=== PATIENT | female | born 1970 | race Caucasian/White ===

== ENCOUNTER → 2016-11-23 | Outpatient (CLI) | payer OTHER ==
--- NOTE | 2016-11-26 13:49 | MM ---
Reason for exam: screening (asymptomatic). Last mammogram was performed 4 years and 9 months ago. History: Family history of breast cancer in maternal cousin at age 40. Benign US LT VAD breast biopsy of the left breast, March 11, 2012. Physical Findings: A clinical breast exam by your physician is recommended on an annual basis and results should be correlated with mammographic findings. MG 3D Screening Mammo W/Cad Bilateral CC and MLO view(s) were taken. Prior study comparison: March 03, 2012, CAD bilateral diagnostic mammogram. The breast tissue is heterogeneously dense. This may lower the sensitivity of mammography. No significant changes when compared with prior studies. ASSESSMENT: Benign, BI-RAD 2 RECOMMENDATION: Routine screening mammogram of both breasts in 1 year.
== END | disposition home or self-care (01) ==
LOC: RADMAMWWP 11:34
PROVIDERS: ATTEND Obstetrics & Gynecology
DX: Z12.31 Encounter for screening mammogram for malignant neoplasm of breast (principal)
CPT/HCPCS: 77063; G0202

== ENCOUNTER → 2018-03-26 | Outpatient (CLI) | payer OTHER ==
[2018-03-26 17:55] LABS: Basophils # (A) 0.1 k/uL (0-0.2); Basophils % (A) 1 %; Eosinophils # (A) 0.2 k/uL (0-0.7); Eosinophils % (A) 2 %; HCT 40.8 % (34.0-46.0); Lymphocytes % (A) 24 %; MCH 30.5 pg (25.0-35.0); MCHC 31.8 g/dL (31.0-37.0); MCV 95.8 fL (80.0-100.0); Mean Platelet Volume 7.5; Monocytes # (A) 0.3 k/uL (0-1.0); Monocytes % (A) 4 %; Neutrophils # (A) 5.5 k/uL (1.3-7.7); Neutrophils % (A) 67 %; Platelet Count 230 k/uL (150-450); RBC 4.27 m/uL (3.80-5.40); RDW 12.6 % (11.5-15.5); WBC 8.3 k/uL (3.8-10.6)
== END | disposition home or self-care (01) ==
LOC: LABWHC1 17:26
PROVIDERS: ATTEND Internal Medicine Gastroenterology
DX: R53.83 Other fatigue (principal)
CPT/HCPCS: 36415; 84443; 85025

== ENCOUNTER 2018-11-07 10:27 | Day surgery (SDC) | payer OTHER ==
[2018-11-05 15:18] VITALS: BMI 25.7
[~2018-11-07 10:27] MED LIST: DEXAMETHASONE SOD PHOSPHATE 10 MG/ML 1 ML VIAL IV ONE; LACTATED RINGERS 1,000 ML IV SCH; LIDOCAINE 1% 20 ML VIAL (10MG/ML) FOR IV START INTRADERMA PRN
[2018-11-07 10:53] VITALS: RESP 16; TEMP 98.3
[2018-11-07] MEDS ORDERED: PROPOFOL 10 MG/ML 20 ML VIAL IV ONE (11:31)
[2018-11-07] MEDS ORDERED: LIDOCAINE 1% INJ 10MG/ML (20 ML MDV) ONE (11:31)
--- NOTE | 2018-11-07 11:54 | P.PCN ---
Date of Procedure: 11/07/18 Procedure(s) Performed: Brief history: Patient is a pleasant 48-year-old white female scheduled for an elective upper endoscopy as well as colonoscopy as a part of evaluation of abdominal pain, abdominal bloating and change in bowel habits. She also has intermittent rectal bleeding. His been having the symptoms for the last several months duration. Procedure performed: Esophagogastroduodenoscopy with biopsy Colonoscopy with biopsy Preoperative diagnosis: Abdominal pain/abdominal bloating Change in bowel habits and intermittent rectal bleeding Anesthesia: MAC Procedure: After informed consent was obtained from the patient was brought into the endoscopy unit and IV sedation was administered by anesthesia under continuous monitoring. Initially upper endoscopy was done. The Olympus GF 160 video endoscope was inserted inserted into the mouth and esophagus intubated without any difficulty and was gradually advanced into the stomach and duodenum and carefully examined. The bulb and second part of the duodenum appeared normal. Biopsies were done from the duodenum to rule out celiac disease. The scope was then withdrawn into the stomach adequately insufflated with air and upon careful examination the antrum had patchy areas of erythema and biopsies were done from this area. The body, cardia and fundus appeared normal. The scope was then withdrawn into the esophagus. The GE junction was located at 40 cm to the incisors. It appeared regular with no erythema erosions or ulcerations. Rest of the esophagus appeared normal. Biopsies were done from the distal esophagus.Patient tolerated the procedure well. At this time the patient continued to remain sedation. Initial digital rectal examination was normal. Olympus CF 160 video colonoscope was then inserted into the rectum and gradually advanced to the cecum without any difficulty. Careful examination was performed as the scope was gradually being withdrawn. The prep was excellent. Terminal ileum was intubated and 20 cm visualized and appeared normal. Biopsies were done from the terminal ileum. The cecum, ascending colon, transverse colon, descending colon, sigmoid colon and rectum appeared normal. There was a 2-3 mm proximal rectal polyp that was removed by cold biopsy Retroflexion was performed in the rectum and no lesions were noted. Patient tolerated the procedure well. Impression: 1. Upper endoscopy revealed minimal antral gastritis but no evidence of esophagitis or peptic ulcer disease 2. Colonoscopy revealed 2 mm proximal rectal polyp status post removal by cold biopsy Recommendations: Findings of this examination were discussed with the patient as well as her family. She was advised to follow with the biopsy results. If the biopsy of the polyp reveals adenoma she can have a repeat colonoscopy in 5 years
[2018-11-07 12:33] VITALS: BP 117/66; PULSE 88
[2018-11-07] MEDS ORDERED: ACETAMINOPHEN TAB 325 MG TAB PO ONE (12:34)
== END 2018-11-07 12:56 | disposition home or self-care (01) ==
LOC: ORWHC2ENDO 10:27
PROVIDERS: ATTEND Internal Medicine Gastroenterology
DX: D12.8 Benign neoplasm of rectum (principal); K29.50 Unspecified chronic gastritis without bleeding; K62.5 Hemorrhage of anus and rectum; Z79.899 Other long term (current) drug therapy
CPT/HCPCS: 81025; 88305; 45380; 43239; J2001; J2704

== ENCOUNTER → 2019-11-09 | Outpatient (CLI) | payer BC ==
--- NOTE | 2019-11-10 11:57 | MM ---
Reason for exam: screening (asymptomatic). Last mammogram was performed 2 years and 11 months ago. History: Family history of breast cancer in maternal cousin at age 40. Reductions of both breasts, 2018. Benign US LT VAD breast biopsy of the left breast, March 11, 2012. Physical Findings: A clinical breast exam by your physician is recommended on an annual basis and results should be correlated with mammographic findings. MG 3D Screening Mammo W/Cad Bilateral CC and MLO view(s) were taken. Prior study comparison: November 23, 2016, bilateral MG 3d screening mammo w/cad. March 03, 2012, CAD bilateral diagnostic mammogram. The breast tissue is extremely dense which could obscure a lesion on mammography. Finding #1: There is a 3 mm equal density (isodense) mass in the lower quadrant, posterior, central position of the right breast. Finding #2: There are typically benign calcifications in both breasts. Previous mammotome biopsy in the left breast. ASSESSMENT: Incomplete: need additional imaging evaluation, BI-RAD 0 RECOMMENDATION: Special view mammogram of the right breast. If lesion persists on supplemental views, image directed ultrasound is recommended. [facility] will attempt to contact patient to return for supplemental views and ultrasound if indicated.
== END | disposition home or self-care (01) ==
LOC: RADMAMWWP 09:17
PROVIDERS: ATTEND Obstetrics & Gynecology
DX: Z12.31 Encounter for screening mammogram for malignant neoplasm of breast (principal); Z91.041 Radiographic dye allergy status
CPT/HCPCS: 77063; 77067

== ENCOUNTER → 2020-01-13 | Outpatient (CLI) | payer BC ==
--- NOTE | 2020-01-13 13:59 | CT ---
EXAMINATION TYPE: CT urogram wo/w con DATE OF EXAM: 01/13/2020 HISTORY: Kidney stones and chronic UTI. Other dorsalgia, Micro hematuria CT DLP: 1074.3mGycm Automated Exposure Control for Dose Reduction was Utilized. CONTRAST: CT scan of the abdomen and pelvis is performed without oral and without and with IV Contrast, patient injected with 100 mL of Isovue 300. Urogram protocol with 3-D reconstructed images created on a [employer] workstation and reviewed. COMPARISON: None. FINDINGS: KUB: Noncontrast images show no renal calculi bilaterally. Postcontrast images show symmetric cortica l medullary uptake and excretion from both kidneys without concerning solid or cystic renal mass or h ydronephrosis seen bilaterally. Visualized portion of both ureters show mild proximal to mid right ur eter without obstructing mass or calculus. Distal left ureter does not completely opacified. No suspi cious intraluminal mass or wall thickening in the moderately distended bladder is present. LUNG BASES: No significant abnormality is appreciated. LIVER/GB: Contracted gallbladder. PANCREAS: No significant abnormality is seen. SPLEEN: No significant abnormality is seen. ADRENALS: No significant abnormality is seen. BOWEL: Normal appearing appendix extending from cecum. No suspicious small or large bowel dilatation. UTERUS/ADNEXA: Anteverted uterus. LYMPH NODES: No greater than 1cm abdominal or pelvic lymph nodes are appreciated. OSSEOUS STRUCTURES: Hemangioma involving the L1 vertebra. OTHER: No significant additional abnormality is seen. IMPRESSION: Source of hematuria not identified. No acute findings are evident
== END | disposition home or self-care (01) ==
LOC: RADCTMAIN 12:17
PROVIDERS: ATTEND Urology
DX: M54.89 Other dorsalgia (principal); R31.29 Other microscopic hematuria
CPT/HCPCS: 74178; 74400; Q9967

== ENCOUNTER → 2021-04-18 | Outpatient (CLI) | payer BC ==
--- NOTE | 2021-04-18 11:27 | MM ---
Reason for exam: additional evaluation requested from prior study. Last mammogram was performed 1 year and 5 months ago. History: Family history of breast cancer in maternal cousin at age 40. Reductions of both breasts, 2018. Benign US LT VAD breast biopsy of the left breast, March 11, 2012. Physical Findings: A clinical breast exam by your physician is recommended on an annual basis and results should be correlated with mammographic findings. MG Diagnostic Mammo w CAD TYLER Bilateral CC and MLO view(s) were taken. Prior study comparison: November 09, 2019, bilateral MG 3d screening mammo w/cad. November 23, 2016, bilateral MG 3d screening mammo w/cad. The breast tissue is extremely dense which could obscure a lesion on mammography. Previous mammotome biopsy in the left breast. There is no discrete abnormality. These results were verbally communicated with the patient and result sheet given to the patient on 04/18/21. ASSESSMENT: Negative, BI-RAD 1 RECOMMENDATION: Routine screening mammogram of both breasts in 1 year.
== END | disposition home or self-care (01) ==
LOC: RADMAMWWP 09:05
PROVIDERS: ATTEND Obstetrics & Gynecology
DX: R92.8 Other abnormal and inconclusive findings on diagnostic imaging of breast (principal); Z80.3 Family history of malignant neoplasm of breast
CPT/HCPCS: 77066

== ENCOUNTER 2022-08-05 22:23 | Emergency (ER) | payer BC ==
[2022-08-05 22:36] VITALS: RESP 18; TEMP 97.9
--- NOTE | 2022-08-05 23:26 | ED ---
General Adult HPI - General Chief complaint: Recheck/Abnormal Lab/Rx Stated complaint: Wounds on Feeet Time Seen by Provider: 08/05/22 22:56 Source: patient, RN notes reviewed Mode of arrival: ambulatory Limitations: no limitations - History of Present Illness Initial comments: 51-year-old female with no significant past medical history presents the emergency Department chief complaint bilateral foot wounds. Patient reports having blisters on bilateral heels she noticed 10 days ago. She was recently started on Bactrim 2 days ago by urgent care. She reports no marked improvement of symptoms. She denies any known fevers, erythema, purulent discharge from the site. - Related Data Home Medications Medication Instructions Recorded Confirmed No Known Home Medications 11/05/18 11/07/18 Allergies Allergy/AdvReac Type Severity Reaction Status Date / Time No Known Allergies Allergy Verified 08/05/22 22:30 Review of Systems ROS Statement: Those systems with pertinent positive or pertinent negative responses have been documented in the HPI. ROS Other: All systems not noted in ROS Statement are negative. Past Medical History Past Medical History: No Reported History Additional Past Medical History / Comment(s): BLOATING, GAS, ABD. PAIN History of Any Multi-Drug Resistant Organisms: None Reported Past Surgical History: Hernia Repair Additional Past Surgical History / Comment(s): "tummy tuck" Past Anesthesia/Blood Transfusion Reactions: No Reported Reaction Past Psychological History: No Psychological Hx Reported Smoking Status: Never smoker Past Alcohol Use History: None Reported Past Drug Use History: None Reported - Past Family History Mother Family Medical History: No Reported History General Exam - General Exam Comments Initial Comments: General: Alert, in no acute distress patient is afebrile Head: atraumatic normocephalic. Eyes PERRL, EOMI intact, mucous membranes moist Respiratory: Lungs clear to auscultation bilaterally Cardiovascular: Heart rate regular rate and rhythm Abdominal: Soft without guarding or rebound Extremities: Normal inspection with full range of motion and normal capillary refill, small 1 cm superficial lacerations to bilateral heels. No marked surrounding erythema, edema, purulent discharge noted. 2+ DP/PT pulses bilaterally. Neuroogic: alert and oriented 3, CN II-XII intact, able to ambulate with steady gait Skin: warm dry and intact with normal color Limitations: no limitations Course Vital Signs 06/18/23 06/18/23 22:30 23:30 Temperature 97.9 F Pulse Rate 62 76 Respiratory 18 18 Rate Blood Pressure 139/120 105/69 O2 Sat by Pulse 96 97 Oximetry Medical Decision Making - Medical Decision Making Was pt. sent in by a medical professional or institution (KALYAN Oscar, EPIC ANALYST, urgent care, hospital, or half-way...) When possible be specific @ -[No] Did you speak to anyone other than the patient for history (EMS, parent, family, police, friend...)? What history was obtained from this source @ -[No] Did you review nursing and triage notes (agree or disagree)? Why? @ -[I reviewed and agree with nursing and triage notes] Were old charts reviewed (outside hosp., previous admission, EMS record, old EKG, old radiological studies, urgent care reports/EKG's, half-way records)? Report findings @ -[No old charts were reviewed] Differential Diagnosis (chest pain, altered mental status, abdominal pain women, abdominal pain men, vaginal bleeding, weakness, fever, dyspnea, syncope, headache, dizziness, GI bleed, back pain, seizure, CVA, palpatations, mental health, musculoskeletal)? @ -[not applicable] EKG interpreted by me (3pts min.). @ -[As above] X-rays interpreted by me (1pt min.). @ -[None done] CT interpreted by me (1pt min.). @ -[None done] U/S interpreted by me (1pt. min.). @ -[None done] What testing was considered but not performed or refused? (CT, X-rays, U/S, labs)? Why? @ -[None] What meds were considered but not given or refused? Why? @ -[None] Did you discuss the management of the patient with other professionals ( professionals i.e. KALYAN Oscar, EPIC ANALYST, lab, RT, psych nurse, director social, brim presser, teacher, life science technical officer, classification case manager)? Give summary @ -[No] Was smoking cessation discussed for >3mins.? @ -[No] Was critical care preformed (if so, how long)? @ -[No] Were there social determinants of health that impacted care today? How? (Homelessness, low income, unemployed, alcoholism, drug addiction, transportation, low edu. Level, literacy, decrease access to med. care, care home, rehab)? @ -[No] Was there de-escalation of care discussed even if they declined (Discuss DNR or withdrawal of care, Hospice)? DNR status @ -[No] What co-morbidities impacted this encounter? (DM, HTN, Smoking, COPD, CAD, Cancer, CVA, ARF, Chemo, Hep., AIDS, mental health diagnosis, sleep apnea, morbid obesity)? @ -[None] Was patient admitted / discharged? Hospital course, mention meds given and route, prescriptions, significant lab abnormalities, going to OR and other pertinent info. @ Discharged. 51-year-old female presents to the emergency department for wound recheck. Patient reports she has bilateral blisters on her heels. Physical exam reveals lesions on bilateral heels consistent with blisters without surrounding erythema or edema, purulent discharge. Patient is currently on antibiotics. Return precautions were discussed patient discharged in stable condition. Case discussed with Dr. Moe, who agrees with POC Undiagnosed new problem with uncertain prognosis? @ -[No] Drug Therapy requiring intensive monitoring for toxicity (Heparin, Nitro, Insulin, Cardizem)? @ -[No] Were any procedures done? @ -[No] Diagnosis/symptom? @ -wound re-check - Blister Acute, or Chronic, or Acute on Chronic? @ -Acute Uncomplicated (without systemic symptoms) or Complicated (systemic symptoms)? @ -uncomplicated Side effects of treatment? @ -[No] Exacerbation, Progression, or Severe Exacerbation? @ -[No] Poses a threat to life or bodily function? How? (Chest pain, [place], [place], pneumonia, PE, COPD, DKA, ARF, appy, cholecystitis, CVA, Diverticulitis, Homicidal, Suicidal, threat to staff... and all critical care pts) @ -low likelihood Disposition Clinical Impression: Encounter for wound re-check Disposition: HOME SELF-CARE Condition: Stable Additional Instructions: Please return to the nearest emergency department symptoms worsen or persist Is patient prescribed a controlled substance at d/c from ED?: No Referrals: Michel Pierre MD [Primary Care Provider] - 1-2 days Time of Disposition: 23:26
[2022-08-05 23:32] VITALS: BP 105/69; PULSE 76
== END 2022-08-05 23:38 | disposition home or self-care (01) ==
LOC: EC 22:23
DX: S90.822A Blister (nonthermal), left foot, initial encounter (principal); S90.821A Blister (nonthermal), right foot, initial encounter; X58.XXXA Exposure to other specified factors, initial encounter
CPT/HCPCS: 99282

== ENCOUNTER → 2023-11-05 | Outpatient (CLI) | payer BC ==
--- NOTE | 2023-11-06 13:06 | CT ---
EXAMINATION TYPE: High resolution CT chest wo con DATE OF EXAM: 11/05/2023 COMPARISON: Radiograph 09/30/2023 HISTORY: 53-year-old female J9 8.4 LUNG PAIN X 4 MONTHS TECHNIQUE: Thin cut high-resolution CT scanning of the chest without contrast. 1 mm slice thickness o f 1 cm gap or HRCT protocol. Both prone and supine imaging is performed. CT DLP: 1424mGycm. Automatic exposure control utilized for a dose reduction. FINDINGS: The heart is normal size without pericardial effusion. Aorta normal caliber with conventional arch vessel branching anatomy. No thoracic lymphadenopathy by CT size criteria. No consolidation or pleural effusion. No thickening of the bronchovascular bundles. No abnormal nodul arity, reticular change, honeycombing, predominantly groundglass. No bronchiectasis or air trapping. 4 mm pulmonary nodule posterior right upper lobe. 4 mm pulmonary nodule left mid lung. Subpleural pulmonary nodule 2 mm anterior left upper lobe, axial image 56. Visualized upper abdomen shows no gross abnormality. Bones: Limited without coronal/sagittal reconstructions. No gross abnormal abnormality seen. IMPRESSION: 1. No specific findings of interstitial lung disease at this time. 2. A few pulmonary nodules measuring up to 4 mm. 6-12 month follow-up CT to ensure stability. [facility], , 11/06/2023 1:03 PM
== END | disposition home or self-care (01) ==
LOC: RADCTMAIN 14:18
PROVIDERS: ATTEND Internal Medicine
DX: J98.4 Other disorders of lung
CPT/HCPCS: 71250

== ENCOUNTER → 2024-04-17 | Outpatient (CLI) | payer BC ==
[2024-04-17 17:11] LABS: T4, Free (Free Thyroxine) 0.99 ng/dL (0.80-1.80)
== END | disposition home or self-care (01) ==
LOC: LABWHC1 08:06
PROVIDERS: ATTEND Internal Medicine
DX: R63.5 Abnormal weight gain (principal); Z83.3 Family history of diabetes mellitus
CPT/HCPCS: 36415; 83036; 84439; 84443; 86376